=== PATIENT | female | born 2000 | race Caucasian/White ===

== ENCOUNTER → 2019-07-24 12:15 | Outpatient (CLI) | payer OTHER, SELFPAY ==
[2019-07-24 14:50] LABS: Urine N gonorrhoeae NOT DETECTED
[2019-07-24 15:03] LABS: Urine Chlamydia NOT DETECTED
== END ==
PROVIDERS: PCP Family Medicine; Visit Provider Nurse Practitioner
DX: Z11.3 Encounter for screening for infections with a predominantly sexual mode of transmission (principal); Z71.1 Person with feared health complaint in whom no diagnosis is made
CPT/HCPCS: 87491; 87591

== ENCOUNTER → 2019-07-24 12:30 | Outpatient (CLI) | payer OTHER, SELFPAY ==
[2019-07-24 16:36] LABS: Hepatitis B Surface Antigen NEGATIVE s/c (NEGATIVE)
[2019-07-24 16:41] LABS: HIV 1 & 2 Ab/Ag 4th Gen Combo NEGATIVE (NEGATIVE); Hep C Virus Ab w/Reflex Quant NEGATIVE s/c (NEGATIVE)
[2019-07-26 20:33] LABS: RPR Screen Nonreactive (Nonreactive)
[2019-07-29 14:34] LABS: HSV 1 IgM Screen Negative (Negative); HSV 2 IgM Screen Negative (Negative)
== END ==
PROVIDERS: PCP Family Medicine; Visit Provider Nurse Practitioner
DX: Z71.1 Person with feared health complaint in whom no diagnosis is made (principal); Z11.3 Encounter for screening for infections with a predominantly sexual mode of transmission
CPT/HCPCS: 36415; 86592; 86695; 86696; 86803; 87340; 87389; 87491; 87591

== ENCOUNTER 2021-08-18 17:34 | Emergency (ER) | payer OTHER, SELFPAY ==
[2021-08-18 18:06] VITALS: BP 174/105; PULSE 112; RESP 22; O2SAT 98
[2021-08-18 19:16] LABS: Add Manual Diff / Slide Review NO; Basophils Absolute Auto 0 /uL (0-100); Basophils Percent Auto 0.3 % (0-2); Eosinophils Absolute Auto 0 /uL (0-450); Eosinophils Percent Auto 0.2 % (2-4); Hematocrit 46.1 % (36-46); Hemoglobin 15.7 g/dL (12.0-16.0); Lymphocytes Absolute Auto 1100 /uL (1100-4500); Lymphocytes Percent Auto 11.2 % (25-40); Mean Corpuscular HGB Conc 33.9 % (30-36); Mean Corpuscular Hemoglobin 30.4 PG (26-34); Mean Corpuscular Volume 89.7 fL (80-100); Monocytes Absolute Auto 700 /uL (0-900); Monocytes Percent Auto 7.7 % (3-14); Neutrophils Absolute Auto 7800 /uL (1500-7000); Neutrophils Percent Auto 80.6 % (50-75); Platelet Count 335 X10^3/uL (150-400); Red Blood Cell Count 5.14 X10^6/uL (4.0-5.2); Red Cell Distribution Width 14.4 % (11.6-14.8); White Blood Cell Count 9.7 X10^3/uL (4.5-11.0)
[2021-08-18 19:32] LABS: Alanine Aminotransferase 21 IU/L (<35); Albumin 5.1 g/dL (3.5-5.0); Albumin Globulin Ratio 1.6 (1.0-2.8); Alkaline Phosphatase 67 U/L (38-126); Aspartate Aminotransferase 26 IU/L (14-36); BUN Creatinine Ratio 26.8 (6-22); Bilirubin Total 1.1 mg/dL (0.2-1.3); Blood Urea Nitrogen 19 mg/dL (7-17); Calcium 10.5 mg/dL (8.4-10.2); Carbon Dioxide 22 mmol/L (22-32); Chloride 102 mmol/L (98-107); Estimated Glomerular Filt Rate > 60.0 mL/min (>60); Ethanol (ETOH) < 10 mg/dL; Globulin 3.1 g/dL (1.7-4.1); Glucose 111 mg/dL (70-100); HEMOLYSIS < 15 (0-50); Potassium 3.8 mmol/L (3.4-5.1); Sodium 137 mmol/L (137-145); Total Protein 8.2 g/dL (6.3-8.2)
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
[2021-08-18 20:02] LABS: UR Morphine/Opiate cutoff 300 Negative (Negative); Ur Creatinine Normal (Normal); Ur Specific Gravity Normal (Normal); Urine Amphetamines Negative (Negative); Urine Barbiturates Negative (Negative); Urine Benzodiazepines Negative (Negative); Urine Cocaine Negative (Negative); Urine MDMA Negative (Negative); Urine Methadone Negative (Negative); Urine Methamphetamines Negative (Negative); Urine Oxycodone Negative (Negative); Urine Phencyclidine Negative (Negative); Urine Tetrahydrocannabinol Positive (Negative); Urine Tricyclic Antidepressant Negative (Negative); Urine pH Normal (Normal)
[2021-08-18 20:03] LABS: Amorphous Sediment Urine 3+; Bacteria Urine Few (2-10); Culture Indicated Urine Specimen Cultured; RBC Urine None Seen (0-5/HPF); Squamous Epithelial Cell Urine 1-5 /HPF (0-5/HPF); WBC Urine None Seen (0-5/HPF)
--- NOTE | 2021-08-18 20:15 | PC.NURSE ---
Provider ok with patient taking her own zoloft.
[2021-08-18 20:18] VITALS: BP 160/77; PULSE 86; RESP 22; O2SAT 99
[2021-08-18] MEDS: LORazepam 0.5 MG TABLET 2 MG PO (22:45)
[2021-08-19 02:00] VITALS: BP 149/70; PULSE 80; RESP 20; O2SAT 99
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
[2021-08-19 13:11] LABS: COVID19 -Nasal RAPID Negative (Negative)
--- NOTE | 2021-08-19 14:49 | CM.SWNOTE ---
Addendum entered by Mignon Quach 08/19/21 18:04: GETTERING OPERATOR Note GETTERING OPERATOR calls [facility], there are no beds. GETTERING OPERATOR calls [facility]. It is reported that they have beds and can review patient. GETTERING OPERATOR faxes clinicals for review. GETTERING OPERATOR calls [facility], it is reported they have no beds. GETTERING OPERATOR calls [facility], it is reported that they have no beds. GETTERING OPERATOR calls [facility], it is reported they have no beds. GETTERING OPERATOR calls [facility] and leaves requesting return call and faxes clinicals for review. GETTERING OPERATOR recieves call from [facility] intake who reports that patient is accepted for this evening. Accepting provider is Kristy Moncada NP. Intake is [facility]. Plan: Patient to transfer to [facility] for inpatient bed. PRASAD Davila Original Note: GETTERING OPERATOR Note Patient presents as pacing back and forth, frantically making phone calls and crying. When asked further patient requests to go to [facility] and states she was there last week. Patient raises voice but it is re-directable. Patient presents as labile, laughing and crying. Patient states that she is amped and in survival mode. It is the opinion of this GETTERING OPERATOR that patient is manic and gravely disabled and in need of inpatient treatment. PRASAD Davila
[2021-08-19] MEDS: LORazepam 0.5 MG TABLET 1 MG PO (14:59)
--- NOTE | 2021-08-19 15:14 | PC.NURSE ---
Accessed patient file to get access to patient last name for records request for record at [facility]. Records request sent and records received and provided to social work and provider.
[2021-08-19 17:18] VITALS: BP 134/83; PULSE 107; RESP 18; TEMP 36.9; O2SAT 99
--- NOTE | 2021-08-19 18:46 | PC.NURSE ---
[facility] [phone] attempted to call nurse to nurse report all staff ar in change of shift gave our phone number and asked they call me back for report
[2021-08-19 19:26] LABS: Urine N gonorrhoeae NOT DETECTED
[2021-08-19 19:29] LABS: Urine Chlamydia NOT DETECTED
== END 2021-08-19 18:40 ==
PROVIDERS: Emergency Medicine; Emergency Provider Emergency Medicine; PCP Family Medicine
DX: F23 Brief psychotic disorder (principal); Z20.822 Contact with and (suspected) exposure to COVID-19
CPT/HCPCS: 36415; 80053; 80305; 80320; 81003; 81015; 81025; 85025; 87086; 87491; 87591; 87635; 93005; 99284; C9803